=== PATIENT | male | born 1955 | race Caucasian/White ===

== ENCOUNTER 2020-02-21 12:39 | Inpatient (IN) | payer OTHER, MEDICAID ==
[~2020-02-21] VITALS: Ht 162.6 cm; Wt 78.0 kg
[2020-02-21 12:40] VITALS: BP_SYST 110
[2020-02-21 13:34] LABS: BASOPHILS # (AUTO) 0.1 K/uL (0.0-0.2); BASOPHILS % (AUTO) 0.6 % (0.0-2.0); EOSINOPHILS # (AUTO) 0.3 K/uL (0.0-0.4); EOSINOPHILS % (AUTO) 2.7 % (0.0-4.0); LYMPHOCYTES # (AUTO) 1.4 K/uL (1.0-5.5); LYMPHOCYTES % (AUTO) 14.7 % (20.5-51.5); MEAN CORPUSCULAR HEMOGLOBIN 31 pg (27-31); MEAN CORPUSCULAR HGB CONC 34 % (32-36); MEAN CORPUSCULAR VOLUME 92 fL (79.0-98.0); MONOCYTES # (AUTO) 1.2 K/uL (0.0-1.0); MONOCYTES % (AUTO) 12.4 % (1.7-9.3); NEUTROPHILS # (AUTO) 6.6 K/uL (1.8-7.7); NEUTROPHILS % (AUTO) 69.6 % (40.0-70.0); PLATELET COUNT (AUTO) 426 K/uL (130-430); RED BLOOD CELL COUNT(AUTO) 2.11 MIL/uL (4.2-6.2); RED CELL DISTRIBUTION WIDTH 13.5 % (9.0-15.0); WHITE BLOOD COUNT (AUTO) 9.4 K/uL (4.8-10.8)
[2020-02-21 13:43] LABS: HEMATOCRIT 19.5 % (36-54); HEMOGLOBIN 6.6 g/dL (14.0-18.0)
[2020-02-21 13:54] LABS: INR 1.1 (0.80-1.20); PROTHROMBIN TIME 11.4 SECS (9.5-12.5)
[2020-02-21 13:56] LABS: CALCIUM 8.6 mg/dL (8.4-11.0); CREATININE 1.39 mg/dL (0.55-1.30); POTASSIUM 4.2 mmol/L (3.5-5.1)
[2020-02-21 14:01] LABS: ALBUMIN 1.7 g/dL (3.4-4.8); TOTAL BILIRUBIN 0.3 mg/dL (0.0-1.0)
[2020-02-21] MEDS ORDERED: NACL 0.9% 1,000 ML IV ONE (14:30)
[2020-02-21] MEDS ORDERED: GLU500 GT (14:36)
[2020-02-21] MEDS ORDERED: ATRMDI INH (14:36)
[2020-02-21] MEDS ORDERED: AMI200 GT (14:36)
[2020-02-21] MEDS ORDERED: CLOP75TA32 GT (14:36)
[2020-02-21] MEDS ORDERED: METO25TA3 GT (14:36)
[2020-02-21] MEDS ORDERED: FINA5TAB3 GT (14:36)
[2020-02-21] MEDS ORDERED: LEVE500T9 GT (14:36)
[2020-02-21] MEDS ORDERED: DOCU-144 GT (14:36)
[2020-02-21] MEDS ORDERED: TYLL650 GT (14:36)
[2020-02-21] MEDS ORDERED: VALS80TA2 GT (14:36)
[2020-02-21] MEDS ORDERED: CARB100T13 GT (14:36)
[2020-02-21] MEDS ORDERED: ALBMDI INH (14:36)
[2020-02-21] MEDS ORDERED: BISA10SU61 RC (14:36)
[2020-02-21] MEDS ORDERED: LIP80 GT (14:36)
[2020-02-21] MEDS ORDERED: FER300L GT (14:36)
[2020-02-21] MEDS ORDERED: INSU100V11 SQ (14:36)
[2020-02-21] MEDS ORDERED: ALBU2.5V7 INH (14:36)
[2020-02-21] MEDS ORDERED: SSNOVOLOG SUBCUT (14:36)
[2020-02-21] MEDS ORDERED: APIX5TAB4 GT (14:36)
[2020-02-21] MEDS ORDERED: LINA5TAB2 GT (14:36)
[2020-02-21 14:48] LABS: BILIRUBIN,URINE NEGATIVE (NEGATIVE); BLOOD, URINE NEGATIVE (NEGATIVE); CLARITY/URINE CLEAR (CLEAR); COLOR,URINE YELLOW (YELLOW); GLUCOSE,URINE NEGATIVE (NEGATIVE); KETONES,URINE NEGATIVE (NEGATIVE); LEUKOCYTE ESTERASE ,URINE NEGATIVE (NEGATIVE); NITRITE, URINE NEGATIVE (NEGATIVE); PROTEIN URINE TRACE (NEGATIVE); UROBILINOGEN,URINE 0.2 (0.2-1.0)
[2020-02-21 15:19] LABS: BACTERIA,URINE None Seen /HPF (None Seen); MUCUS,URINE None Seen /LPF (None Seen); RBC,URINE 0-3 /HPF (0-3); WBC,URINE 0-3 /HPF (0-3)
[2020-02-21 15:35] VITALS: BP_SYST 133
[2020-02-21 16:43] VITALS: BP_SYST 133
[2020-02-21 16:50] VITALS: BP_SYST 118
[2020-02-21] MEDS ORDERED: GOLYTELY / COLYTE SOLUTION 4 LITERS PO ONE (17:30)
[2020-02-21] MEDS ORDERED: BISACODYL 5 MG TABLET.DR (DULCOLAX) PO ONE (17:30)
[2020-02-21] MEDS ORDERED: IPRATROPIUM BROMIDE 17 mCg/ACTUATION, 12.9 GM AER.W.ADAP INH SCH (18:00)
[2020-02-21] MEDS: metFORMIN HCL 500 MG TABLET GT SCH (18:00)
[2020-02-21] MEDS ORDERED: ALBUTEROL SULFATE 0.083% 2.5 MG/3 ML VIAL.NEB INH PRN (18:00)
[2020-02-21] MEDS ORDERED: INSULIN ASPART 100 UNITS/ML, 10 ML VIAL (NovoLOG) SUBCUT PRN (18:00)
[2020-02-21] MEDS ORDERED: ACETAMINOPHEN 650 MG/20.3 ML UDC GT PRN (18:00)
[2020-02-21] MEDS ORDERED: IPRATROPIUM BROM 0.5 MG/2.5 ML VIAL.NEB (ATROVENT) INH SCH (19:00)
[2020-02-21] MEDS ORDERED: IPRATROPIUM BROM 0.5 MG/2.5 ML VIAL.NEB (ATROVENT) INH PRN (19:00)
[2020-02-21] MEDS: FERROUS SULFATE 300 MG/5 ML UDC GT SCH (20:39)
[2020-02-21] MEDS: D5/0.45 NS 1,000 ML IV SCH (20:39)
[2020-02-21] MEDS: AMIODARONE HCL 200 MG TABLET GT SCH (20:40)
[2020-02-21] MEDS: levETIRAcetam 500 MG TABLET GT SCH (20:40)
[2020-02-21] MEDS: ATORVASTATIN 20 MG TABLET GT SCH (20:40)
[2020-02-21] MEDS ORDERED: ALBUTEROL MDI INHALATION 8 GM INH INH SCH (21:00)
[2020-02-22] VITALS (7 sets, daily range): BP systolic 138–169
[2020-02-22] MEDS ORDERED: SODIUM PHOSPHATE,MONO-DIBASIC 133 ML ENEMA RC ONE (06:00)
[2020-02-22 06:44] LABS: BASOPHILS # (AUTO) 0.1 K/uL (0.0-0.2); EOSINOPHILS # (AUTO) 0.3 K/uL (0.0-0.4); EOSINOPHILS % (AUTO) 3.1 % (0.0-4.0); HEMATOCRIT 23.8 % (36-54); LYMPHOCYTES # (AUTO) 1.7 K/uL (1.0-5.5); LYMPHOCYTES % (AUTO) 19.6 % (20.5-51.5); MEAN CORPUSCULAR HEMOGLOBIN 30 pg (27-31); MEAN CORPUSCULAR HGB CONC 34 % (32-36); MEAN CORPUSCULAR VOLUME 91 fL (79.0-98.0); MONOCYTES % (AUTO) 11.5 % (1.7-9.3); NEUTROPHILS # (AUTO) 5.6 K/uL (1.8-7.7); NEUTROPHILS % (AUTO) 64.8 % (40.0-70.0); PLATELET COUNT (AUTO) 420 K/uL (130-430); RED BLOOD CELL COUNT(AUTO) 2.63 MIL/uL (4.2-6.2); RED CELL DISTRIBUTION WIDTH 14.2 % (9.0-15.0); RETICULOCYTE COUNT 1.2 % (0.5-1.5); WHITE BLOOD COUNT (AUTO) 8.6 K/uL (4.8-10.8)
[2020-02-22 06:46] LABS: ALBUMIN 1.8 g/dL (3.4-4.8); CALCIUM 8.6 mg/dL (8.4-11.0); CREATININE 1.16 mg/dL (0.55-1.30); POTASSIUM 3.8 mmol/L (3.5-5.1); TOTAL BILIRUBIN 0.3 mg/dL (0.0-1.0)
[2020-02-22 07:04] LABS: TOTAL IRON BIND. CAPACITY 139 ug/dL (250-450)
[2020-02-22] MEDS: metFORMIN HCL 500 MG TABLET GT SCH ×2 (08:30→19:07)
[2020-02-22] MEDS: AMIODARONE HCL 200 MG TABLET GT SCH ×2 (08:30→22:06)
[2020-02-22] MEDS: levETIRAcetam 500 MG TABLET GT SCH ×2 (08:30→22:05)
[2020-02-22] MEDS: FINASTERIDE 5 MG TABLET (PROSCAR) GT SCH (08:30)
[2020-02-22] MEDS: INSULIN GLARGINE 100 UNITS/ML 10 ML VIAL SUBCUT SCH (08:30)
[2020-02-22] MEDS: LOSARTAN POTASSIUM 50 MG TABLET (COZAAR) GT SCH (08:30)
[2020-02-22] MEDS: METOPROLOL SUCCINATE 25 MG TAB.SR.24H (TOPROL XL) PO SCH (08:30)
[2020-02-22] MEDS: FERROUS SULFATE 300 MG/5 ML UDC GT SCH ×2 (08:30→22:04)
[2020-02-22] MEDS ORDERED: VALSARTAN 80 MG TABLET (DIOVAN) GT SCH (09:00)
[2020-02-22] MEDS ORDERED: BISACODYL 10 MG/SUPPOSITORY RC PRN (09:00)
[2020-02-22] MEDS ORDERED: SIMETHICONE 40 MG/0.6 ML ML ONE (09:19)
[2020-02-22] MEDS: MIDAZOLAM HCL 5 MG/5 ML VIAL ONE ×2 (10:18→10:23)
[2020-02-22] MEDS: MEPERIDINE HCL/PF 100 MG/ML AMP ONE ×2 (10:18→10:23)
[2020-02-22] MEDS ORDERED: FOLIC ACID 1 MG TABLET GT ONE (10:30)
[2020-02-22] MEDS: D5/0.45 NS 1,000 ML IV SCH (15:59)
[2020-02-22] MEDS: ATORVASTATIN 20 MG TABLET GT SCH (22:05)
[2020-02-23] VITALS (8 sets, daily range): BP systolic 116–159
[2020-02-23] MEDS: D5/0.45 NS 1,000 ML IV SCH ×2 (06:08→20:40)
[2020-02-23 07:14] LABS: BASOPHILS % (AUTO) 0.5 % (0.0-2.0); EOSINOPHILS # (AUTO) 0.3 K/uL (0.0-0.4); EOSINOPHILS % (AUTO) 3.6 % (0.0-4.0); HEMATOCRIT 23.5 % (36-54); HEMOGLOBIN 7.8 g/dL (14.0-18.0); LYMPHOCYTES # (AUTO) 1.5 K/uL (1.0-5.5); LYMPHOCYTES % (AUTO) 16.4 % (20.5-51.5); MEAN CORPUSCULAR HEMOGLOBIN 30 pg (27-31); MEAN CORPUSCULAR HGB CONC 33 % (32-36); MEAN CORPUSCULAR VOLUME 92 fL (79.0-98.0); MONOCYTES % (AUTO) 10.8 % (1.7-9.3); NEUTROPHILS # (AUTO) 6.1 K/uL (1.8-7.7); NEUTROPHILS % (AUTO) 68.7 % (40.0-70.0); PLATELET COUNT (AUTO) 408 K/uL (130-430); RED BLOOD CELL COUNT(AUTO) 2.56 MIL/uL (4.2-6.2); RED CELL DISTRIBUTION WIDTH 13.7 % (9.0-15.0); WHITE BLOOD COUNT (AUTO) 8.9 K/uL (4.8-10.8)
[2020-02-23 07:59] LABS: ALBUMIN 1.6 g/dL (3.4-4.8); CALCIUM 8.2 mg/dL (8.4-11.0); CREATININE 1.01 mg/dL (0.55-1.30); POTASSIUM 3.7 mmol/L (3.5-5.1); TOTAL BILIRUBIN 0.2 mg/dL (0.0-1.0)
[2020-02-23 08:06] LABS: FOLATE (FOLIC ACID) 15.8 ng/mL (>3.0)
[2020-02-23 08:14] LABS: BILIRUBIN,URINE NEGATIVE (NEGATIVE); BLOOD, URINE NEGATIVE (NEGATIVE); CLARITY/URINE CLEAR (CLEAR); COLOR,URINE YELLOW (YELLOW); GLUCOSE,URINE NEGATIVE (NEGATIVE); KETONES,URINE NEGATIVE (NEGATIVE); LEUKOCYTE ESTERASE ,URINE NEGATIVE (NEGATIVE); NITRITE, URINE NEGATIVE (NEGATIVE); PROTEIN URINE 2+ (NEGATIVE); UROBILINOGEN,URINE 0.2 (0.2-1.0)
[2020-02-23] MEDS: metFORMIN HCL 500 MG TABLET GT SCH ×2 (08:53→17:14)
[2020-02-23] MEDS: CLOPIDOGREL BISULFATE 75 MG TABLET GT SCH (08:53)
[2020-02-23] MEDS: DOCUSATE SODIUM 100 MG CAPSULE PO SCH ×2 (08:53→20:40)
[2020-02-23] MEDS: APIXABAN 2.5 MG TABLET PO SCH ×2 (08:54→20:43)
[2020-02-23] MEDS: METOPROLOL SUCCINATE 25 MG TAB.SR.24H (TOPROL XL) PO SCH (08:54)
[2020-02-23] MEDS: FOLIC ACID 1 MG TABLET GT SCH (08:55)
[2020-02-23] MEDS: AMIODARONE HCL 200 MG TABLET GT SCH ×2 (08:55→20:46)
[2020-02-23] MEDS: FERROUS SULFATE 300 MG/5 ML UDC GT SCH ×2 (08:56→20:40)
[2020-02-23] MEDS: levETIRAcetam 500 MG TABLET GT SCH ×2 (08:56→20:40)
[2020-02-23] MEDS: LOSARTAN POTASSIUM 50 MG TABLET (COZAAR) GT SCH (08:56)
[2020-02-23] MEDS: INSULIN GLARGINE 100 UNITS/ML 10 ML VIAL SUBCUT SCH (08:57)
[2020-02-23] MEDS: FINASTERIDE 5 MG TABLET (PROSCAR) GT SCH (09:03)
[2020-02-23 09:30] LABS: BACTERIA,URINE None Seen /HPF (None Seen); RBC,URINE 0-3 /HPF (0-3); WBC,URINE 0-3 /HPF (0-3)
[2020-02-23] MEDS: ATORVASTATIN 20 MG TABLET GT SCH (20:41)
[2020-02-24] VITALS (7 sets, daily range): BP systolic 137–165
[2020-02-24] MEDS: INSULIN REGULAR, HUMAN 100 UNITS/ML, 10 ML VIAL (humuLIN R) SUBCUT PRN ×4 (06:07→20:16)
[2020-02-24 06:51] LABS: BASOPHILS # (AUTO) 0.1 K/uL (0.0-0.2); BASOPHILS % (AUTO) 0.4 % (0.0-2.0); EOSINOPHILS # (AUTO) 0.3 K/uL (0.0-0.4); EOSINOPHILS % (AUTO) 2.3 % (0.0-4.0); HEMATOCRIT 23.8 % (36-54); HEMOGLOBIN 8.1 g/dL (14.0-18.0); LYMPHOCYTES # (AUTO) 1.4 K/uL (1.0-5.5); MEAN CORPUSCULAR HEMOGLOBIN 31 pg (27-31); MEAN CORPUSCULAR HGB CONC 34 % (32-36); MEAN CORPUSCULAR VOLUME 92 fL (79.0-98.0); MONOCYTES # (AUTO) 1.2 K/uL (0.0-1.0); MONOCYTES % (AUTO) 10.3 % (1.7-9.3); NEUTROPHILS # (AUTO) 8.5 K/uL (1.8-7.7); PLATELET COUNT (AUTO) 453 K/uL (130-430); RED BLOOD CELL COUNT(AUTO) 2.58 MIL/uL (4.2-6.2); RED CELL DISTRIBUTION WIDTH 13.6 % (9.0-15.0); WHITE BLOOD COUNT (AUTO) 11.4 K/uL (4.8-10.8)
[2020-02-24] MEDS: levETIRAcetam 500 MG TABLET GT SCH ×2 (08:05→20:10)
[2020-02-24] MEDS: CLOPIDOGREL BISULFATE 75 MG TABLET GT SCH (08:05)
[2020-02-24] MEDS: metFORMIN HCL 500 MG TABLET GT SCH ×2 (08:05→17:18)
[2020-02-24] MEDS: DOCUSATE SODIUM 100 MG CAPSULE PO SCH (08:05)
[2020-02-24] MEDS: FERROUS SULFATE 300 MG/5 ML UDC GT SCH ×2 (08:05→20:09)
[2020-02-24] MEDS: AMIODARONE HCL 200 MG TABLET GT SCH ×2 (08:06→20:10)
[2020-02-24] MEDS: FOLIC ACID 1 MG TABLET GT SCH (08:06)
[2020-02-24] MEDS: LOSARTAN POTASSIUM 50 MG TABLET (COZAAR) GT SCH (08:07)
[2020-02-24] MEDS: APIXABAN 2.5 MG TABLET PO SCH ×2 (08:08→20:11)
[2020-02-24] MEDS: METOPROLOL SUCCINATE 25 MG TAB.SR.24H (TOPROL XL) PO SCH (08:09)
[2020-02-24] MEDS: INSULIN GLARGINE 100 UNITS/ML 10 ML VIAL SUBCUT SCH (08:10)
[2020-02-24] MEDS: FINASTERIDE 5 MG TABLET (PROSCAR) GT SCH (08:12)
[2020-02-24] MEDS ORDERED: DOCUSATE SODIUM 100 MG/10 ML UDC PO SCH (08:19)
[2020-02-24 08:20] LABS: ALBUMIN 1.7 g/dL (3.4-4.8); CALCIUM 8.6 mg/dL (8.4-11.0); CREATININE 0.99 mg/dL (0.55-1.30); POTASSIUM 4.7 mmol/L (3.5-5.1); TOTAL BILIRUBIN 0.2 mg/dL (0.0-1.0)
[2020-02-24] MEDS ORDERED: COMMUNICATION ORDER XX ONE (08:30)
[2020-02-24] MEDS: D5/0.45 NS 1,000 ML IV SCH (14:55)
[2020-02-24] MEDS: DOCUSATE SODIUM 100 MG/10 ML UDC PO SCH (20:09)
[2020-02-24] MEDS: ATORVASTATIN 20 MG TABLET GT SCH (20:11)
[2020-02-25 00:28] VITALS: BP_SYST 137
[2020-02-25] MEDS: D5/0.45 NS 1,000 ML IV SCH (02:56)
[2020-02-25] MEDS: INSULIN REGULAR, HUMAN 100 UNITS/ML, 10 ML VIAL (humuLIN R) SUBCUT PRN ×2 (06:14→12:23)
[2020-02-25 06:41] LABS: BASOPHILS # (AUTO) 0.1 K/uL (0.0-0.2); BASOPHILS % (AUTO) 0.6 % (0.0-2.0); EOSINOPHILS # (AUTO) 0.2 K/uL (0.0-0.4); EOSINOPHILS % (AUTO) 2.2 % (0.0-4.0); HEMATOCRIT 22.7 % (36-54); HEMOGLOBIN 7.4 g/dL (14.0-18.0); LYMPHOCYTES # (AUTO) 1.8 K/uL (1.0-5.5); LYMPHOCYTES % (AUTO) 16.3 % (20.5-51.5); MEAN CORPUSCULAR HEMOGLOBIN 30 pg (27-31); MEAN CORPUSCULAR HGB CONC 33 % (32-36); MEAN CORPUSCULAR VOLUME 92 fL (79.0-98.0); MONOCYTES # (AUTO) 1.3 K/uL (0.0-1.0); MONOCYTES % (AUTO) 11.9 % (1.7-9.3); NEUTROPHILS # (AUTO) 7.7 K/uL (1.8-7.7); PLATELET COUNT (AUTO) 445 K/uL (130-430); RED BLOOD CELL COUNT(AUTO) 2.47 MIL/uL (4.2-6.2); WHITE BLOOD COUNT (AUTO) 11.1 K/uL (4.8-10.8)
[2020-02-25 07:07] LABS: ALBUMIN 1.6 g/dL (3.4-4.8); CALCIUM 8.4 mg/dL (8.4-11.0); CREATININE 1.01 mg/dL (0.55-1.30); TOTAL BILIRUBIN 0.1 mg/dL (0.0-1.0)
[2020-02-25] MEDS: FOLIC ACID 1 MG TABLET GT SCH (09:41)
[2020-02-25] MEDS: CLOPIDOGREL BISULFATE 75 MG TABLET GT SCH (09:41)
[2020-02-25] MEDS: FERROUS SULFATE 300 MG/5 ML UDC GT SCH ×2 (09:41→20:26)
[2020-02-25] MEDS: DOCUSATE SODIUM 100 MG/10 ML UDC PO SCH ×2 (09:41→20:26)
[2020-02-25] MEDS: metFORMIN HCL 500 MG TABLET GT SCH ×2 (09:42→17:04)
[2020-02-25] MEDS: APIXABAN 2.5 MG TABLET PO SCH ×2 (09:42→20:28)
[2020-02-25] MEDS: levETIRAcetam 500 MG TABLET GT SCH ×2 (09:44→20:26)
[2020-02-25] MEDS: INSULIN GLARGINE 100 UNITS/ML 10 ML VIAL SUBCUT SCH (09:44)
[2020-02-25] MEDS: METOPROLOL SUCCINATE 25 MG TAB.SR.24H (TOPROL XL) PO SCH (09:45)
[2020-02-25] MEDS: AMIODARONE HCL 200 MG TABLET GT SCH ×2 (09:46→20:27)
[2020-02-25] MEDS: LOSARTAN POTASSIUM 50 MG TABLET (COZAAR) GT SCH (09:47)
[2020-02-25] MEDS: FINASTERIDE 5 MG TABLET (PROSCAR) GT SCH (09:51)
[2020-02-25 11:26] VITALS: BP_SYST 129
[2020-02-25 15:40] VITALS: BP_SYST 139
[2020-02-25 20:00] VITALS: BP_SYST 139
[2020-02-25] MEDS: ATORVASTATIN 20 MG TABLET GT SCH (20:27)
[2020-02-26 00:35] VITALS: BP_SYST 130
[2020-02-26 06:50] LABS: BASOPHILS # (AUTO) 0.1 K/uL (0.0-0.2); BASOPHILS % (AUTO) 0.6 % (0.0-2.0); EOSINOPHILS # (AUTO) 0.2 K/uL (0.0-0.4); EOSINOPHILS % (AUTO) 2.2 % (0.0-4.0); HEMATOCRIT 23.8 % (36-54); HEMOGLOBIN 7.9 g/dL (14.0-18.0); LYMPHOCYTES # (AUTO) 1.9 K/uL (1.0-5.5); LYMPHOCYTES % (AUTO) 16.2 % (20.5-51.5); MEAN CORPUSCULAR HEMOGLOBIN 30 pg (27-31); MEAN CORPUSCULAR HGB CONC 33 % (32-36); MEAN CORPUSCULAR VOLUME 92 fL (79.0-98.0); MONOCYTES % (AUTO) 8.5 % (1.7-9.3); NEUTROPHILS # (AUTO) 8.4 K/uL (1.8-7.7); NEUTROPHILS % (AUTO) 72.5 % (40.0-70.0); PLATELET COUNT (AUTO) 467 K/uL (130-430); RED BLOOD CELL COUNT(AUTO) 2.59 MIL/uL (4.2-6.2); RED CELL DISTRIBUTION WIDTH 13.8 % (9.0-15.0); WHITE BLOOD COUNT (AUTO) 11.6 K/uL (4.8-10.8)
[2020-02-26 07:20] LABS: ALBUMIN 1.6 g/dL (3.4-4.8); CALCIUM 8.2 mg/dL (8.4-11.0); CREATININE 0.92 mg/dL (0.55-1.30); TOTAL BILIRUBIN 0.2 mg/dL (0.0-1.0)
[2020-02-26 08:00] VITALS: BP_SYST 134
[2020-02-26] MEDS: CLOPIDOGREL BISULFATE 75 MG TABLET GT SCH (08:48)
[2020-02-26] MEDS: FOLIC ACID 1 MG TABLET GT SCH (08:48)
[2020-02-26] MEDS: metFORMIN HCL 500 MG TABLET GT SCH ×2 (08:49→17:08)
[2020-02-26] MEDS: AMIODARONE HCL 200 MG TABLET GT SCH (08:50)
[2020-02-26] MEDS: LOSARTAN POTASSIUM 50 MG TABLET (COZAAR) GT SCH (08:50)
[2020-02-26] MEDS: levETIRAcetam 500 MG TABLET GT SCH (08:51)
[2020-02-26] MEDS: METOPROLOL SUCCINATE 25 MG TAB.SR.24H (TOPROL XL) PO SCH (08:52)
[2020-02-26] MEDS: FINASTERIDE 5 MG TABLET (PROSCAR) GT SCH (08:52)
[2020-02-26] MEDS: FERROUS SULFATE 300 MG/5 ML UDC GT SCH (08:53)
[2020-02-26] MEDS: DOCUSATE SODIUM 100 MG/10 ML UDC PO SCH (08:53)
[2020-02-26] MEDS: INSULIN GLARGINE 100 UNITS/ML 10 ML VIAL SUBCUT SCH (08:55)
[2020-02-26] MEDS: APIXABAN 2.5 MG TABLET PO SCH (08:59)
[2020-02-26] MEDS ORDERED: LACTULOSE 20 GM/30 ML UDC PO ONE (10:30)
[2020-02-26] MEDS ORDERED: LACTULOSE 20 GM/30 ML UDC GT ONE (11:30)
[2020-02-26 11:36] VITALS: BP_SYST 134
[2020-02-26] MEDS: INSULIN REGULAR, HUMAN 100 UNITS/ML, 10 ML VIAL (humuLIN R) SUBCUT PRN (11:48)
[2020-02-26 15:40] VITALS: BP_SYST 148
[2020-02-26 20:00] VITALS: BP_SYST 145
[2020-02-27 00:18] VITALS: BP_SYST 158
[2020-02-27] MEDS: ATORVASTATIN 20 MG TABLET GT SCH (00:48)
[2020-02-27] MEDS: FERROUS SULFATE 300 MG/5 ML UDC GT SCH ×2 (00:49→08:19)
[2020-02-27] MEDS: DOCUSATE SODIUM 100 MG/10 ML UDC PO SCH ×2 (00:49→08:19)
[2020-02-27] MEDS: levETIRAcetam 500 MG TABLET GT SCH ×2 (00:49→08:20)
[2020-02-27] MEDS: LACTULOSE 20 GM/30 ML UDC GT SCH ×2 (00:49→08:19)
[2020-02-27] MEDS: APIXABAN 2.5 MG TABLET PO SCH ×2 (00:50→08:22)
[2020-02-27] MEDS: AMIODARONE HCL 200 MG TABLET GT SCH ×2 (00:51→08:22)
[2020-02-27] MEDS: INSULIN REGULAR, HUMAN 100 UNITS/ML, 10 ML VIAL (humuLIN R) SUBCUT PRN ×2 (06:31→11:02)
[2020-02-27 07:51] LABS: BASOPHILS % (AUTO) 0.4 % (0.0-2.0); EOSINOPHILS # (AUTO) 0.2 K/uL (0.0-0.4); EOSINOPHILS % (AUTO) 1.8 % (0.0-4.0); HEMOGLOBIN 8.3 g/dL (14.0-18.0); LYMPHOCYTES # (AUTO) 1.5 K/uL (1.0-5.5); LYMPHOCYTES % (AUTO) 13.7 % (20.5-51.5); MEAN CORPUSCULAR HEMOGLOBIN 31 pg (27-31); MEAN CORPUSCULAR HGB CONC 33 % (32-36); MEAN CORPUSCULAR VOLUME 92 fL (79.0-98.0); MONOCYTES # (AUTO) 1.1 K/uL (0.0-1.0); MONOCYTES % (AUTO) 9.9 % (1.7-9.3); NEUTROPHILS % (AUTO) 74.2 % (40.0-70.0); PLATELET COUNT (AUTO) 517 K/uL (130-430); RED BLOOD CELL COUNT(AUTO) 2.71 MIL/uL (4.2-6.2); RED CELL DISTRIBUTION WIDTH 14.2 % (9.0-15.0); WHITE BLOOD COUNT (AUTO) 10.7 K/uL (4.8-10.8)
[2020-02-27 08:04] VITALS: BP_SYST 145
[2020-02-27] MEDS: FINASTERIDE 5 MG TABLET (PROSCAR) GT SCH (08:19)
[2020-02-27] MEDS: FOLIC ACID 1 MG TABLET GT SCH (08:20)
[2020-02-27] MEDS: METOPROLOL SUCCINATE 25 MG TAB.SR.24H (TOPROL XL) PO SCH (08:20)
[2020-02-27] MEDS: CLOPIDOGREL BISULFATE 75 MG TABLET GT SCH (08:20)
[2020-02-27] MEDS: LOSARTAN POTASSIUM 50 MG TABLET (COZAAR) GT SCH (08:21)
[2020-02-27] MEDS: metFORMIN HCL 500 MG TABLET GT SCH (08:21)
[2020-02-27] MEDS: INSULIN GLARGINE 100 UNITS/ML 10 ML VIAL SUBCUT SCH (08:23)
[2020-02-27 10:34] VITALS: BP_SYST 145
[2020-02-27 12:00] VITALS: BP_SYST 140
[2020-02-27] MEDS ORDERED: IPRA0.2S53 INH (13:26)
[2020-02-27] MEDS ORDERED: LOSA50TA3 GT (13:26)
[2020-02-27] MEDS ORDERED: METO-540 PO (13:26)
[2020-02-27] MEDS ORDERED: FOLI-43 GT (13:26)
[2020-02-27] MEDS ORDERED: Lactulose GT (13:26)
[2020-02-27 15:10] VITALS: BP_SYST 146
[2020-02-27 16:33] VITALS: BP_SYST 146
== END 2020-02-27 16:30 | DRG 377 ==
LOC: SED 12:39 → STU 13:58
PROVIDERS: ADMIT Internal Medicine Infectious Disease; ATTEND Internal Medicine Infectious Disease
PROC: 5A1955Z Respiratory Ventilation, Greater than 96 Consecutive Hours (ICD-10-PCS; principal; 2020-02-21)
PROC: 30233N1 Transfusion of Nonautologous Red Blood Cells into Peripheral Vein, Percutaneous Approach (ICD-10-PCS; 2020-02-21)
PROC: 0DBN8ZZ Excision of Sigmoid Colon, Via Natural or Artificial Opening Endoscopic (ICD-10-PCS; 2020-02-22)
PROC: 0DB98ZX Excision of Duodenum, Via Natural or Artificial Opening Endoscopic, Diagnostic (ICD-10-PCS; 2020-02-22)
PROC: 0DB78ZX Excision of Stomach, Pylorus, Via Natural or Artificial Opening Endoscopic, Diagnostic (ICD-10-PCS; 2020-02-22)
DX: K29.71 Gastritis, unspecified, with bleeding (principal); G82.50 Quadriplegia, unspecified; E43 Unspecified severe protein-calorie malnutrition; E87.1 Hypo-osmolality and hyponatremia; N17.9 Acute kidney failure, unspecified; J96.10 Chronic respiratory failure, unspecified whether with hypoxia or hypercapnia; Z99.11 Dependence on respirator [ventilator] status; K29.81 Duodenitis with bleeding; K57.91 Diverticulosis of intestine, part unspecified, without perforation or abscess with bleeding; K44.9 Diaphragmatic hernia without obstruction or gangrene; I12.9 Hypertensive chronic kidney disease with stage 1 through stage 4 chronic kidney disease, or unspecified chronic kidney disease; E11.22 Type 2 diabetes mellitus with diabetic chronic kidney disease; E78.00 Pure hypercholesterolemia, unspecified; E78.5 Hyperlipidemia, unspecified; G40.909 Epilepsy, unspecified, not intractable, without status epilepticus; I25.10 Atherosclerotic heart disease of native coronary artery without angina pectoris; D63.8 Anemia in other chronic diseases classified elsewhere; K64.8 Other hemorrhoids; N18.9 Chronic kidney disease, unspecified; E11.65 Type 2 diabetes mellitus with hyperglycemia; R13.10 Dysphagia, unspecified; Z86.73 Personal history of transient ischemic attack (TIA), and cerebral infarction without residual deficits; Z95.1 Presence of aortocoronary bypass graft; Z68.29 Body mass index [BMI] 29.0-29.9, adult; Z93.0 Tracheostomy status; Z79.899 Other long term (current) drug therapy
CPT/HCPCS: 36415; 36600; 43239; 45380; 71045; 80053; 81000-TC; 82272; 82607; 82728; 82746; 82803-TC; 82962; 83010; 83540-TC; 83550-TC; 85025; 85044-TC; 85610-TC; 85730-TC; 86886; 86900; 86901; 86920; 87070-TC; 87081; 87186-TC; 87205-TC; 88305; 88312; 93005; 94002; 94003; 94640; 94760; 96360; 99285; G0378; J1815; J2175; J2250; J7050; J7613; P9021

== ENCOUNTER 2020-03-09 20:16 | Inpatient (IN) | payer OTHER, MEDICAID, SELFPAY ==
[~2020-03-09] VITALS: Ht 167.6 cm; Wt 69.9 kg
[~2020-03-09 20:16] MED LIST: ALBMDI INH; ALBU2.5V7 INH; AMI200 GT; APIX5TAB4 GT; ATRMDI INH; BISA10SU61 RC; CARB100T13 GT; CLOP75TA32 GT; DOCU-144 GT; FER300L GT; FINA5TAB3 GT; FOLI-43 GT; GLU500 GT; INSU100V11 SQ; IPRA0.2S53 INH; LEVE500T9 GT; LINA5TAB2 GT; LIP80 GT; LOSA50TA3 GT; Lactulose GT; METO-540 PO; METO25TA3 GT; SSNOVOLOG SUBCUT; TYLL650 GT; VALS80TA2 GT
[2020-03-09 20:26] VITALS: BP_SYST 117
[2020-03-09 21:30] LABS: BASOPHILS # (AUTO) 0.1 K/uL (0.0-0.2); BASOPHILS % (AUTO) 0.5 % (0.0-2.0); EOSINOPHILS % (AUTO) 0.2 % (0.0-4.0); HEMATOCRIT 23.2 % (36-54); HEMOGLOBIN 7.5 g/dL (14.0-18.0); LYMPHOCYTES # (AUTO) 2.1 K/uL (1.0-5.5); LYMPHOCYTES % (AUTO) 11.3 % (20.5-51.5); MEAN CORPUSCULAR HEMOGLOBIN 30 pg (27-31); MEAN CORPUSCULAR HGB CONC 32 % (32-36); MEAN CORPUSCULAR VOLUME 91 fL (79.0-98.0); MONOCYTES # (AUTO) 2.3 K/uL (0.0-1.0); MONOCYTES % (AUTO) 12.3 % (1.7-9.3); NEUTROPHILS # (AUTO) 13.9 K/uL (1.8-7.7); NEUTROPHILS % (AUTO) 75.7 % (40.0-70.0); PLATELET COUNT (AUTO) 505 K/uL (130-430); RED BLOOD CELL COUNT(AUTO) 2.55 MIL/uL (4.2-6.2); RED CELL DISTRIBUTION WIDTH 14.6 % (9.0-15.0); WHITE BLOOD COUNT (AUTO) 18.3 K/uL (4.8-10.8)
[2020-03-09 22:00] LABS: CALCIUM 9.3 mg/dL (8.4-11.0); CREATININE 1.48 mg/dL (0.55-1.30); POTASSIUM 5.8 mmol/L (3.5-5.1)
[2020-03-09 22:01] LABS: TOTAL BILIRUBIN 0.1 mg/dL (0.0-1.0)
[2020-03-09] MEDS ORDERED: INSULIN REGULAR, HUMAN 10 UNITS/0.1 ML INJ IVP ONE (22:15)
[2020-03-09] MEDS ORDERED: DEXTROSE 50% JECT 50 ML DISP.SYRIN IVP ONE (22:15)
[2020-03-09] MEDS ORDERED: cefTRIAXone 1 GM IVPB PREMIX 50 ML IV ONE (22:15)
[2020-03-09] MEDS ORDERED: METO25TA6 GT (22:29)
[2020-03-09] MEDS ORDERED: ACET-2165 GT (22:29)
[2020-03-09] MEDS ORDERED: CHLO473M12 MM (22:29)
[2020-03-09 22:40] LABS: INR 1.2 (0.80-1.20); PROTHROMBIN TIME 11.7 SECS (9.5-12.5)
[2020-03-09] MEDS ORDERED: NACL 0.9% 1,000 ML IV ONE (22:45)
[2020-03-10] VITALS (7 sets, daily range): BP systolic 108–133
[2020-03-10 07:01] LABS: BASOPHILS # (AUTO) 0.1 K/uL (0.0-0.2); BASOPHILS % (AUTO) 0.6 % (0.0-2.0); EOSINOPHILS # (AUTO) 0.1 K/uL (0.0-0.4); EOSINOPHILS % (AUTO) 0.5 % (0.0-4.0); LYMPHOCYTES # (AUTO) 2.5 K/uL (1.0-5.5); LYMPHOCYTES % (AUTO) 14.8 % (20.5-51.5); MEAN CORPUSCULAR HEMOGLOBIN 30 pg (27-31); MEAN CORPUSCULAR HGB CONC 32 % (32-36); MEAN CORPUSCULAR VOLUME 92 fL (79.0-98.0); MONOCYTES # (AUTO) 2.3 K/uL (0.0-1.0); MONOCYTES % (AUTO) 13.9 % (1.7-9.3); NEUTROPHILS # (AUTO) 11.7 K/uL (1.8-7.7); PLATELET COUNT (AUTO) 393 K/uL (130-430); RED BLOOD CELL COUNT(AUTO) 2.18 MIL/uL (4.2-6.2); RED CELL DISTRIBUTION WIDTH 14.9 % (9.0-15.0); WHITE BLOOD COUNT (AUTO) 16.7 K/uL (4.8-10.8)
[2020-03-10 07:34] LABS: ALBUMIN 1.8 g/dL (3.4-4.8); CALCIUM 8.8 mg/dL (8.4-11.0); CREATININE 1.3 mg/dL (0.55-1.30); POTASSIUM 5.4 mmol/L (3.5-5.1); TOTAL BILIRUBIN 0.2 mg/dL (0.0-1.0)
[2020-03-10 08:53] LABS: HEMOGLOBIN 6.5 g/dL (14.0-18.0)
[2020-03-10 11:48] LABS: NEUTROPHILS % (AUTO) 70.2 % (40.0-70.0)
[2020-03-10] MEDS ORDERED: ACETAMINOPHEN 650 MG/20.3 ML UDC GT PRN (21:00)
[2020-03-10] MEDS ORDERED: ACETAMINOPHEN 325 MG TABLET GT PRN (21:00)
[2020-03-10] MEDS ORDERED: IPRATROPIUM BROM 0.5 MG/2.5 ML VIAL.NEB (ATROVENT) INH PRN (21:00)
[2020-03-10] MEDS ORDERED: ALBUTEROL SULFATE 0.083% 2.5 MG/3 ML VIAL.NEB INH PRN ×2 (21:00)
[2020-03-10] MEDS: INSULIN GLARGINE 100 UNITS/ML 10 ML VIAL SQ SCH (22:03)
[2020-03-10] MEDS: levETIRAcetam 500 MG TABLET GT SCH (23:00)
[2020-03-10] MEDS: AMIODARONE HCL 200 MG TABLET GT SCH (23:00)
[2020-03-10] MEDS: FERROUS SULFATE 300 MG/5 ML UDC GT SCH (23:00)
[2020-03-10] MEDS: DOCUSATE SODIUM 100 MG/10 ML UDC PO SCH (23:00)
[2020-03-10] MEDS: ATORVASTATIN 20 MG TABLET GT SCH (23:00)
[2020-03-10] MEDS: METOPROLOL TARTRATE 25 MG TABLET GT SCH (23:00)
[2020-03-11] MEDS ORDERED: SODIUM POLYSTYRENE SULFONATE 15 GM/60 ML UDBTL GT ONE (04:45)
[2020-03-11] MEDS ORDERED: VANCOMYCIN HCL 1 GM/NS PREMIX 250 ML IV ONE (05:00)
[2020-03-11] MEDS: INSULIN LISPRO SLIDING SCALE 100 UNITS/ML VIAL (humaLOG) SUBCUT PRN ×3 (06:02→18:11)
[2020-03-11] MEDS ORDERED: VANCOMYCIN HCL 1000 MG/VIAL IV ONE (06:04)
[2020-03-11 06:46] LABS: BASOPHILS # (AUTO) 0.1 K/uL (0.0-0.2); BASOPHILS % (AUTO) 0.8 % (0.0-2.0); EOSINOPHILS # (AUTO) 0.2 K/uL (0.0-0.4); EOSINOPHILS % (AUTO) 1.3 % (0.0-4.0); HEMATOCRIT 23.5 % (36-54); HEMOGLOBIN 7.7 g/dL (14.0-18.0); LYMPHOCYTES # (AUTO) 1.7 K/uL (1.0-5.5); MEAN CORPUSCULAR HEMOGLOBIN 30 pg (27-31); MEAN CORPUSCULAR HGB CONC 33 % (32-36); MEAN CORPUSCULAR VOLUME 90 fL (79.0-98.0); MONOCYTES # (AUTO) 1.4 K/uL (0.0-1.0); MONOCYTES % (AUTO) 11.6 % (1.7-9.3); NEUTROPHILS # (AUTO) 8.9 K/uL (1.8-7.7); NEUTROPHILS % (AUTO) 72.3 % (40.0-70.0); PLATELET COUNT (AUTO) 399 K/uL (130-430); RED BLOOD CELL COUNT(AUTO) 2.61 MIL/uL (4.2-6.2); RED CELL DISTRIBUTION WIDTH 15.7 % (9.0-15.0); RETICULOCYTE COUNT 1.6 % (0.5-1.5); WHITE BLOOD COUNT (AUTO) 12.3 K/uL (4.8-10.8)
[2020-03-11 08:00] VITALS: BP_SYST 137
[2020-03-11] MEDS: metFORMIN HCL 500 MG TABLET GT SCH ×2 (08:00→18:06)
[2020-03-11 08:57] LABS: TOTAL IRON BIND. CAPACITY 167 ug/dL (250-450)
[2020-03-11] MEDS: INSULIN GLARGINE 100 UNITS/ML 10 ML VIAL SQ SCH ×2 (09:00→21:44)
[2020-03-11] MEDS: LOSARTAN POTASSIUM 50 MG TABLET (COZAAR) PO SCH (09:00)
[2020-03-11] MEDS: DOCUSATE SODIUM 100 MG/10 ML UDC PO SCH ×2 (09:00→21:37)
[2020-03-11] MEDS: CLOPIDOGREL BISULFATE 75 MG TABLET GT SCH (09:00)
[2020-03-11] MEDS: levETIRAcetam 500 MG TABLET GT SCH ×2 (09:00→21:39)
[2020-03-11] MEDS: FERROUS SULFATE 300 MG/5 ML UDC GT SCH ×2 (09:00→21:36)
[2020-03-11] MEDS: METOPROLOL TARTRATE 25 MG TABLET GT SCH ×2 (09:00→21:38)
[2020-03-11] MEDS: APIXABAN 2.5 MG TABLET GT SCH ×2 (09:00→21:45)
[2020-03-11] MEDS: AMIODARONE HCL 200 MG TABLET GT SCH ×2 (09:00→21:39)
[2020-03-11] MEDS: LACTULOSE 20 GM/30 ML UDC GT SCH ×2 (09:00→21:36)
[2020-03-11] MEDS: BISACODYL 10 MG/SUPPOSITORY RC SCH (09:00)
[2020-03-11] MEDS: FOLIC ACID 1 MG TABLET GT SCH (09:00)
[2020-03-11] MEDS: FINASTERIDE 5 MG TABLET (PROSCAR) GT SCH (09:00)
[2020-03-11] MEDS: CHLORHEXIDINE GLUCONATE 15 ML/DOSE, 480 ML MM SCH ×2 (09:00→21:47)
[2020-03-11 12:00] VITALS: BP_SYST 127
[2020-03-11 16:00] VITALS: BP_SYST 130
[2020-03-11 20:55] VITALS: BP_SYST 127
[2020-03-11] MEDS: ATORVASTATIN 20 MG TABLET GT SCH (21:38)
[2020-03-12 00:22] VITALS: BP_SYST 141
[2020-03-12] MEDS: INSULIN LISPRO SLIDING SCALE 100 UNITS/ML VIAL (humaLOG) SUBCUT PRN ×5 (01:01→23:22)
[2020-03-12] MEDS: LEVOFLOXACIN 500 MG/D5W 100 ML IV SCH (05:51)
[2020-03-12] MEDS ORDERED: LEVOFLOXACIN 500 MG/D5W 100 ML IV ONE (06:03)
[2020-03-12] MEDS: VANCOMYCIN HCL 1,250 MG in NS 250 ML IV SCH (06:58)
[2020-03-12 07:10] LABS: FERRITIN 231 ng/mL (30-400); FOLATE (FOLIC ACID) >20.0 ng/mL (>3.0)
[2020-03-12 07:10] LABS: BASOPHILS # (AUTO) 0.1 K/uL (0.0-0.2); BASOPHILS % (AUTO) 0.9 % (0.0-2.0); EOSINOPHILS # (AUTO) 0.2 K/uL (0.0-0.4); HEMOGLOBIN 7.7 g/dL (14.0-18.0); LYMPHOCYTES # (AUTO) 1.7 K/uL (1.0-5.5); LYMPHOCYTES % (AUTO) 16.6 % (20.5-51.5); MEAN CORPUSCULAR HEMOGLOBIN 30 pg (27-31); MEAN CORPUSCULAR HGB CONC 33 % (32-36); MEAN CORPUSCULAR VOLUME 90 fL (79.0-98.0); MONOCYTES # (AUTO) 1.3 K/uL (0.0-1.0); MONOCYTES % (AUTO) 13.3 % (1.7-9.3); NEUTROPHILS # (AUTO) 6.7 K/uL (1.8-7.7); NEUTROPHILS % (AUTO) 67.2 % (40.0-70.0); PLATELET COUNT (AUTO) 390 K/uL (130-430); RED BLOOD CELL COUNT(AUTO) 2.55 MIL/uL (4.2-6.2); RED CELL DISTRIBUTION WIDTH 15.7 % (9.0-15.0)
[2020-03-12 07:26] LABS: ALBUMIN 1.8 g/dL (3.4-4.8); CALCIUM 8.7 mg/dL (8.4-11.0); CREATININE 1.21 mg/dL (0.55-1.30); POTASSIUM 4.6 mmol/L (3.5-5.1); TOTAL BILIRUBIN 0.2 mg/dL (0.0-1.0)
[2020-03-12 08:00] VITALS: BP_SYST 141
[2020-03-12 08:22] LABS: BILIRUBIN,URINE NEGATIVE (NEGATIVE); BLOOD, URINE NEGATIVE (NEGATIVE); CLARITY/URINE OTHER (CLEAR); COLOR,URINE YELLOW (YELLOW); GLUCOSE,URINE NEGATIVE (NEGATIVE); KETONES,URINE NEGATIVE (NEGATIVE); LEUKOCYTE ESTERASE ,URINE NEGATIVE (NEGATIVE); NITRITE, URINE NEGATIVE (NEGATIVE); PH,URINE 6.5 (5.0-8.0); PROTEIN URINE 2+ (NEGATIVE)
[2020-03-12] MEDS: DOCUSATE SODIUM 100 MG/10 ML UDC PO SCH ×2 (09:06→21:04)
[2020-03-12] MEDS: FINASTERIDE 5 MG TABLET (PROSCAR) GT SCH (09:06)
[2020-03-12] MEDS: LOSARTAN POTASSIUM 50 MG TABLET (COZAAR) PO SCH (09:06)
[2020-03-12] MEDS: LACTULOSE 20 GM/30 ML UDC GT SCH ×2 (09:06→21:04)
[2020-03-12] MEDS: FOLIC ACID 1 MG TABLET GT SCH (09:06)
[2020-03-12] MEDS: AMIODARONE HCL 200 MG TABLET GT SCH ×2 (09:07→21:04)
[2020-03-12] MEDS: FERROUS SULFATE 300 MG/5 ML UDC GT SCH ×2 (09:08→21:04)
[2020-03-12] MEDS: CLOPIDOGREL BISULFATE 75 MG TABLET GT SCH (09:09)
[2020-03-12] MEDS: METOPROLOL TARTRATE 25 MG TABLET GT SCH ×2 (09:09→21:04)
[2020-03-12] MEDS: BISACODYL 10 MG/SUPPOSITORY RC SCH (09:10)
[2020-03-12] MEDS: APIXABAN 2.5 MG TABLET GT SCH (09:10)
[2020-03-12] MEDS: levETIRAcetam 500 MG TABLET GT SCH ×2 (09:10→21:03)
[2020-03-12] MEDS: BALSAM PERU/CASTOR OIL 60 GM OINT...G. TP SCH (09:15)
[2020-03-12] MEDS: metFORMIN HCL 500 MG TABLET GT SCH ×2 (09:15→17:20)
[2020-03-12] MEDS: INSULIN GLARGINE 100 UNITS/ML 10 ML VIAL SQ SCH ×2 (09:17→21:20)
[2020-03-12] MEDS: CHLORHEXIDINE GLUCONATE 15 ML/DOSE, 480 ML MM SCH ×2 (09:18→21:05)
[2020-03-12 12:07] VITALS: BP_SYST 140
[2020-03-12 16:41] VITALS: BP_SYST 136
[2020-03-12 19:40] VITALS: BP_SYST 132
[2020-03-12] MEDS: ATORVASTATIN 20 MG TABLET GT SCH (21:03)
[2020-03-12 23:39] VITALS: BP_SYST 140
[2020-03-13] MEDS: LEVOFLOXACIN 500 MG/D5W 100 ML IV SCH (03:48)
[2020-03-13] MEDS: VANCOMYCIN HCL 1,250 MG in NS 250 ML IV SCH (05:14)
[2020-03-13] MEDS: INSULIN LISPRO SLIDING SCALE 100 UNITS/ML VIAL (humaLOG) SUBCUT PRN ×3 (05:19→18:45)
[2020-03-13 06:50] LABS: BASOPHILS # (AUTO) 0.1 K/uL (0.0-0.2); BASOPHILS % (AUTO) 0.8 % (0.0-2.0); EOSINOPHILS # (AUTO) 0.2 K/uL (0.0-0.4); EOSINOPHILS % (AUTO) 2.3 % (0.0-4.0); HEMATOCRIT 23.9 % (36-54); HEMOGLOBIN 7.7 g/dL (14.0-18.0); LYMPHOCYTES % (AUTO) 21.1 % (20.5-51.5); MEAN CORPUSCULAR HEMOGLOBIN 29 pg (27-31); MEAN CORPUSCULAR HGB CONC 32 % (32-36); MEAN CORPUSCULAR VOLUME 91 fL (79.0-98.0); MONOCYTES # (AUTO) 1.2 K/uL (0.0-1.0); MONOCYTES % (AUTO) 12.8 % (1.7-9.3); PLATELET COUNT (AUTO) 384 K/uL (130-430); RED BLOOD CELL COUNT(AUTO) 2.63 MIL/uL (4.2-6.2); RED CELL DISTRIBUTION WIDTH 15.6 % (9.0-15.0); WHITE BLOOD COUNT (AUTO) 9.5 K/uL (4.8-10.8)
[2020-03-13 08:00] VITALS: BP_SYST 128
[2020-03-13 08:05] LABS: ALBUMIN 1.8 g/dL (3.4-4.8); CALCIUM 8.6 mg/dL (8.4-11.0); CREATININE 1.35 mg/dL (0.55-1.30); POTASSIUM 4.8 mmol/L (3.5-5.1); TOTAL BILIRUBIN 0.1 mg/dL (0.0-1.0)
[2020-03-13] MEDS: AMIODARONE HCL 200 MG TABLET GT SCH ×2 (10:17→20:25)
[2020-03-13] MEDS: FINASTERIDE 5 MG TABLET (PROSCAR) GT SCH (10:18)
[2020-03-13] MEDS: levETIRAcetam 500 MG TABLET GT SCH ×2 (10:18→20:25)
[2020-03-13] MEDS: DOCUSATE SODIUM 100 MG/10 ML UDC PO SCH ×2 (10:18→20:26)
[2020-03-13] MEDS: FOLIC ACID 1 MG TABLET GT SCH (10:18)
[2020-03-13] MEDS: LACTULOSE 20 GM/30 ML UDC GT SCH ×2 (10:18→20:25)
[2020-03-13] MEDS: FERROUS SULFATE 300 MG/5 ML UDC GT SCH ×2 (10:18→20:25)
[2020-03-13] MEDS: BISACODYL 10 MG/SUPPOSITORY RC SCH (10:19)
[2020-03-13] MEDS: CHLORHEXIDINE GLUCONATE 15 ML/DOSE, 480 ML MM SCH ×2 (10:19→20:44)
[2020-03-13] MEDS: LOSARTAN POTASSIUM 50 MG TABLET (COZAAR) PO SCH (10:19)
[2020-03-13] MEDS: BALSAM PERU/CASTOR OIL 60 GM OINT...G. TP SCH (10:20)
[2020-03-13] MEDS: metFORMIN HCL 500 MG TABLET GT SCH ×2 (10:21→18:48)
[2020-03-13] MEDS: METOPROLOL TARTRATE 25 MG TABLET GT SCH ×2 (10:22→20:24)
[2020-03-13] MEDS: INSULIN GLARGINE 100 UNITS/ML 10 ML VIAL SQ SCH (10:24)
[2020-03-13] MEDS ORDERED: SOD FERRIC GLUC COMPLEX/SUC 125 MG in NS 100 ML IV SCH (10:45)
[2020-03-13 11:47] VITALS: BP_SYST 128
[2020-03-13 12:50] VITALS: BP_SYST 147
[2020-03-13 15:34] VITALS: BP_SYST 147
[2020-03-13 16:00] VITALS: BP_SYST 142
[2020-03-13] MEDS: ATORVASTATIN 20 MG TABLET GT SCH (20:25)
[2020-03-13 20:56] VITALS: BP_SYST 150
== END 2020-03-13 21:35 | DRG 871 ==
LOC: SED 20:16 → STU 23:16 → EEVIPCON 23:16 → STU 03-10 00:25
PROVIDERS: ADMIT Internal Medicine Infectious Disease; ATTEND Internal Medicine Infectious Disease
PROC: 30233N1 Transfusion of Nonautologous Red Blood Cells into Peripheral Vein, Percutaneous Approach (ICD-10-PCS; principal; 2020-03-10)
PROC: 5A1945Z Respiratory Ventilation, 24-96 Consecutive Hours (ICD-10-PCS; 2020-03-10)
DX: A41.2 Sepsis due to unspecified staphylococcus (principal); J18.9 Pneumonia, unspecified organism; G82.50 Quadriplegia, unspecified; J96.21 Acute and chronic respiratory failure with hypoxia; Z99.11 Dependence on respirator [ventilator] status; E11.9 Type 2 diabetes mellitus without complications; Z20.828 Contact with and (suspected) exposure to other viral communicable diseases; E78.5 Hyperlipidemia, unspecified; D63.8 Anemia in other chronic diseases classified elsewhere; E87.5 Hyperkalemia; G40.909 Epilepsy, unspecified, not intractable, without status epilepticus; I10 Essential (primary) hypertension; I25.10 Atherosclerotic heart disease of native coronary artery without angina pectoris; Z79.01 Long term (current) use of anticoagulants; Z86.73 Personal history of transient ischemic attack (TIA), and cerebral infarction without residual deficits; Z95.1 Presence of aortocoronary bypass graft; Z79.899 Other long term (current) drug therapy; Z79.84 Long term (current) use of oral hypoglycemic drugs; Z79.4 Long term (current) use of insulin; Z93.0 Tracheostomy status; Z93.1 Gastrostomy status
CPT/HCPCS: 36415; 71045; 80053; 82550-TC; 82607; 82728; 82746; 82962; 83540-TC; 83550-TC; 83605; 83880; 84484; 85025; 85044-TC; 85379; 85610-TC; 86710; 86886; 86900; 86901; 86920; 87040-TC; 87081; 93005; 94002; 94003; 94640; 96361; 96365; 96375; 99285; G0378; J0696; J1815; J1956; J2916; J3370; J7050; P9021; U0002